=== PATIENT | female | born 1930 | race Caucasian/White ===

== ENCOUNTER → 2016-05-17 | Outpatient (CLI) | payer MEDICARE, BC ==
[~2016-05-17] MED LIST: ASPIRIN LO-DOSE81 MG PO; ATIVAN 0.5MG0.5 MG PO; FLECAINIDE ACET50 MG PO; LEVOTHROID (SY88 MCG PO; OXYGEN M-15 NOSE; PRESERVISION A1 EAC2 PO; PRESERVISION L1 EACH PO
== END | disposition disaster alternative care site (69) ==
LOC: GRAD 10:38
DX: R10.9 Unspecified abdominal pain (principal); D64.9 Anemia, unspecified; K57.30 Diverticulosis of large intestine without perforation or abscess without bleeding

== ENCOUNTER 2016-07-20 23:54 | Inpatient (IN) | payer OTHER, MEDICARE, BC ==
[~2016-07-20] VITALS: Ht 162.6 cm; Wt 44.6 kg
--- NOTE | ~2016-07-20 | HP ---
PATIENT'S NAME: [facility]JA [facility] AGE: 86 Y [address] ROOM: [place] [address] LOCATION: [facility] ADMIT DATE: 07/21/2016 History & Physical DISCHARGE DATE: 07/22/2016 FAMILY PHYSICIAN: Burton Gaffney MD ATTENDING PHYSICIAN: Burton Gaffney DATE OF SERVICE: CHIEF COMPLAINT: Shortness of breath. HISTORY OF PRESENT ILLNESS: The patient is an 86-year-old female, who is currently in Hospice with a history of congestive heart failure, who presented to the Emergency Department with acute shortness of breath. The patient was found to have a hemoglobin of 4.2. The patient does have a history of anemia along with congestive heart failure. The patient is currently in Hospice and being taken care of by her son. PAST MEDICAL HISTORY: Reviewed. PAST SURGICAL HISTORY: Reviewed. ALLERGIES: REVIEWED. MEDICATIONS: Reviewed. FAMILY HISTORY: Noncontributory. REVIEW OF SYSTEMS: Noted. OBJECTIVE: VITAL SIGNS: Temperature was 97.7, pulse was 93, respirations were 22, and blood pressure was 92/55. GENERAL: The patient is alert, arousable, and able to answer questions. HEENT: Head: Normocephalic and atraumatic. Eyes: Conjunctivae were clear. No scleral icterus. Mouth and Oropharynx: Mucosa was moist and patent. No lesions or exudates. NECK: Supple. No lymphadenopathy. PATIENT'S NAME: S[facility]JA [facility] AGE: 86 Y [address] ROOM: [place] [address] LOCATION: [facility] ADMIT DATE: 07/21/2016 History & Physical DISCHARGE DATE: 07/22/2016 FAMILY PHYSICIAN: Burton Gaffney MD ATTENDING PHYSICIAN: Burton Gaffney HEART: Regular rate and rhythm. LUNGS: Decreased breath sounds at bases. ABDOMEN: Bowel sounds are present and nontender. EXTREMITIES: No cyanosis. VASCULAR: Pulse was 2. LABORATORY DATA: CBC showed a hemoglobin of 4.2. Chemistry showed a potassium of 3.4. ASSESSMENT: 1. Congestive heart failure. 2. Anemia. 3. Hospice. 4. Anxiety. 5. Hypothyroidism. PLAN: At this time, we will transfuse 2 units of blood and re-check a hemoglobin afterwards. We will have a discussion with family about Hospice, and their needs at home in order to keep the patient comfortable. MD SAVANNAH GAMBOA/hollie /[id number] D: T: HISTORY & PHYSICAL
--- NOTE | ~2016-07-20 | ER ---
PATIENT'S NAME: FAN CASILLAS [facility] AGE: 86 Y [address] ROOM: [place] [address] LOCATION: [facility] ADMIT DATE: 07/21/2016 ER/Outpatient Report DISCHARGE DATE: FAMILY PHYSICIAN: Burton Gaffney MD ATTENDING PHYSICIAN: Burton Gaffney Time of Arrival: 2354 hours. Time of Evaluation: 2354 hours. CHIEF COMPLAINT: Fall. HISTORY OF PRESENT ILLNESS: The patient is an 86-year-old female, who presents to the emergency department today with chief complaint of fall. She reports that she fell while trying to get out of bed as she almost was able to get up, however, then fell again. She was unable to get up at that time as she felt too weak. She has been having increased weakness over the past few weeks. She denies any pain. No hip pain. Denies any head injury. No loss of consciousness. Denies any fevers or chills. No nausea or vomiting. No diarrhea or constipation. No urinary symptoms. No difficulties talking or swallowing. She is having difficulty with walking. PAST MEDICAL HISTORY: On hospice, atrial fibrillation, B12 deficiency, congestive heart failure, anemia, hypothyroid. PAST SURGICAL HISTORY: Bowel resection, back surgery. SOCIAL HISTORY: The patient quit smoking 40 years ago. Denies any illicit drug abuse. Does rarely use alcohol. ALLERGIES: TO IODINE AND SULFA. MEDICATIONS: Please see list. PRIMARY CARE DOCTOR: Dr. Gaffney. REVIEW OF SYSTEMS: All systems are reviewed by myself and are negative with the exception of [facility] 86 Y [address] ROOM: [place] [address] LOCATION: [facility] ADMIT DATE: 07/21/2016 ER/Outpatient Report DISCHARGE DATE: FAMILY PHYSICIAN: Burton Gaffney MD ATTENDING PHYSICIAN: Burton Gaffney those discussed in the HPI and past medical history. PHYSICAL EXAMINATION: VITAL SIGNS: Weight 49.7 kg, blood pressure 119/60, pulse 96, respiratory rate 20, temperature 98.9, oxygen saturation 84% on room air, 95% on 2 L nasal cannula. GENERAL: The patient is an 86-year-old female, who appears pale, appears stated age. HEENT: Normocephalic. Conjunctivae are pale. NECK: Supple. There is no nuchal rigidity. CARDIOVASCULAR: Regular rate and rhythm. LUNGS: Diminished diffusely. No wheezes, rales, or rhonchi. ABDOMEN: Soft, nontender, and nondistended. No rebound, rigidity, or guarding. MUSCULOSKELETAL: The patient moves all 4 extremities. Normal range of motion. There is no tenderness to palpation of the bony landmarks. The patient does have some weakness in bilateral lower extremities. Upper extremities 5/5. NEUROLOGICAL: GCS of 15. Alert. Facial sensation is normal. No facial droop. No motor dysfunction of the face. Shoulder shrug is normal. Equal field secretary strength bilaterally. No pronator drift. Normal ardnrj-ei-garm. Normal rapid hand movement. Downward going toes. No clonus. 2/4 reflexes. SKIN: Warm and dry. The patient does have stage I decubitus ulcer. LABORATORY DATA AND X-RAYS: Urinalysis: 500 leuk esterase, negative nitrite, 100 protein, 10 blood, 20-50 wbc's, many bacteria, 0-2 rbc's, 2-5 epithelials, 0-[address] scan of the brain is obtained. It is read by [facility]. It shows no acute process. CT scan of the C-spine is negative except it does show moderate to severe bilateral mastoiditis as well as moderate to severe emphysema. Lactate is 1.5. EKG is obtained, is interpreted by myself at 0050 hours. It shows atrial fibrillation with a rate of 96, normal axis, normal interval. No ST elevation or ST depression, nonspecific T-wave. ProBNP is 1646. CBC: White blood cell count is normal. Hemoglobin is 4.2, this is compared to 05/21, when it was 9.0; platelets are 120. CMP: Sodium 147, potassium 3.4, CO2 of 36. LFTs normal. Magnesium is normal. CK is 19. CK-MB and troponin are normal. Chest x-ray, no acute process. Procalcitonin 0.37. IMPRESSION: 1. Acute on chronic blood loss anemia. 2. Acute urinary tract infection, suspect bladder. 3. Immobility. 4. Hypernatremia. 5. 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 6. Moderate to severe emphysema. PATIENT'S NAME: FAN CASILLAS [facility] AGE: 86 Y [address] ROOM: [place] [address] LOCATION: [facility] ADMIT DATE: 07/21/2016 ER/Outpatient Report DISCHARGE DATE: FAMILY PHYSICIAN: Burton Gaffney MD ATTENDING PHYSICIAN: Burton Gaffney 7. Atrial fibrillation with slow ventricular rate. 8. Initial visit. EMERGENCY DEPARTMENT COURSE: The patient was brought back to the examination room. Seen and evaluated by myself. IV is established. Laboratory analysis and imaging are obtained as described above. The patient is typed and crossed for 4 units of packed red blood cells. I have discussed results with the patient and her son as well as [id number], who are at the bedside. I have discussed the risks and benefits of receiving blood. We did give the patient 1 g of Rocephin IV for the urinary tract infection. I have discussed the case with Dr. Gaffney, the patient's primary care doctor, he is on-call. He does agree to accept the patient for further evaluation, treatment, and management. DISPOSITION: The patient is admitted under the care of Dr. Gaffney in stable condition. DO SENDY OTOOLE/hollie /[id number] d: 07/21/16 0434 t: 07/22/16 0553, OUTPATIENT REPORT
--- NOTE | ~2016-07-20 | DS ---
PATIENT'S NAME: FAN CASILLAS [facility] AGE: 86 Y [address] ROOM: [address] [address] LOCATION: [facility] ADMIT DATE: 07/21/2016 Discharge Summary DISCHARGE DATE: 07/22/2016 FAMILY PHYSICIAN: Burton Gaffney MD ATTENDING PHYSICIAN: Burton Gfafney DISCHARGE DIAGNOSES: 1. Congestive heart failure. 2. Hypothyroidism. 3. Anemia. 4. Hospice. 5. Anxiety. CONSULTS DURING ADMISSION: Hospice and Care Management. PROCEDURES DURING ADMISSION: None. HOSPITAL COURSE: The patient is an 86-year-old female, who is on hospice who was brought through the emergency department for increasing shortness of breath and deterioration. The patient was found to have a hemoglobin of 4.2 and was transfused 2 units of blood and it went up to 7.2. At this time, we had a long discussion with the son who is the POA along with hospice about her cares and the patient desired to be discharged back home on hospice. DISCHARGE CONDITION: Stable. DISPOSITION: Home. DISCHARGE MEDICATIONS: Please see list. DISCHARGE INSTRUCTIONS: At this time, the patient will continue on hospice and the patient and family are to follow with hospice nurse. BURTON GAFFNEY MD RLG/modl /[id number] d: 07/27/16 0330 t: 08/16/16 2119, DISCHARGE SUMMARY
--- NOTE | ~2016-07-20 | CON ---
PATIENT'S NAME: FAN CASILLAS [facility] AGE: 86 Y [address] ROOM: [place] [address] LOCATION: [facility] ADMIT DATE: 07/21/2016 Consultation DISCHARGE DATE: FAMILY PHYSICIAN: Burton Gaffney MD ATTENDING PHYSICIAN: Burton Gaffney DATE OF CONSULTATION: 07/21/2016 LOCATION: [address] [place] [address]. This is a palliative care referral for transitioning back to hospice and goals of care. HISTORY OF PRESENT ILLNESS: This 86-year-old, frail female came in on 07/21/2016. She had fallen a couple of times at home. Was previously on hospice for history of congestive heart failure, combined systolic and diastolic, and anemia. She had continued to decline lived at home. Son and caregivers checked on her daily, but did not have 24-hour care. She had become increasing weaker, walked with walker, and not eating. Currently, denies any pain, nausea, or vomiting. Does complain of some shortness of breath. Not hungry, refusing to eat, taking very little in orally. She is alert and oriented, but drowsy. PAST MEDICAL HISTORY: Acquired hypothyroidism; anxiety; congestive heart failure, combined systolic and diastolic; emphysema; essential hypertension; paroxysmal atrial fibrillation; pernicious anemia; and right eye blindness. PAST SURGICAL HISTORY: Bowel resection, back surgery, hysterectomy, and cholecystectomy. SOCIAL HISTORY: Lives at home alone. Has a son and a daughter. Quit smoking about 40 years ago. No illicit drug use. Rare alcohol use. ALLERGIES: TO ERYTHROMYCIN, IODINE, OXYTETRACYCLINE, POLYMYXIN B OPHTHALMIC DROPS, PENICILLIN, SULFA, AND TERRAMYCIN. HOME MEDICATIONS: 1. Aspirin 81 mg. 2. Flecainide 50 mg take one every 12 hours. 3. Levothyroxine 88 mcg daily. 4. PreserVision with lutein 226 mg/200 units in 5 mg oral tablet daily. PATIENT'S NAME: FAN CASILLAS [facility] AGE: 86 Y [address] ROOM: [address] [address] LOCATION: [facility] ADMIT DATE: 07/21/2016 Consultation DISCHARGE DATE: FAMILY PHYSICIAN: Burton Gaffney MD ATTENDING PHYSICIAN: Burton Gaffney REVIEW OF SYSTEMS: A complete review of systems was done and is negative except as mentioned in the HPI and listed below. GI: Unknown last bowel movement. Taking in very little orally per her caregiver and hospice nurse. MUSCULOSKELETAL: Overall declining, getting weaker and weaker. PHYSICAL EXAMINATION: GENERAL: This is a frail, cachectic 86-year-old female. Alert but drowsy. Does arouse easily. Seems oriented to date, time, and place. Recognizes her son. VITAL SIGNS: Temperature 97.7, pulse 93 and regular, respirations 22, blood pressure 92/52, and O2 saturations 99%. SKIN: Warm and dry. Color pale. HEENT: Head, normocephalic and atraumatic. Sclerae are nonicteric. Conjunctivae are pale pink. Mouth is pink and moist without exudate. LYMPH: No cervical adenopathy or thyromegaly. RESPIRATORY: Clear to auscultation. Breath sounds even and regular, slightly labored, about 24 a minute. CARDIAC: S1, S2 without murmurs. No bruits or JVD. No lower extremity edema. ABDOMEN: Soft and nontender. Positive bowel tones. No hepatosplenomegaly. NEUROLOGICAL: Grossly intact. Follows commands. No focal or sensory deficits noted. MUSCULOSKELETAL: Decreased muscle mass in upper and lower extremities. Decreased strength in lower extremities. EXTREMITIES: No cyanosis or deformities. Palliative performance scale is 20%, totally bed-bound, unable do any activity, total care, minimal to sips intake, conscious level is full but drowsy. IMPRESSION: 1. Weakness. 2. Fatigue. 3. Dyspnea. PLAN: 1. Met with the patient and her son, Thien, who is her medical power of sales training manager; daycare manager, Mila Navarrete RN from hospice. Discussed overall plan of care. The patient had been on hospice and wanting comfort cares and not aggressive cares. The patient states very loudly she just wants to go home as soon as possible. She wants to be with her dog and her cat. Son is in agreement to just keep the patient PATIENT'S NAME: FAN CASILLAS [facility] AGE: 86 Y [address] ROOM: [place] [address] LOCATION: [facility] ADMIT DATE: 07/21/2016 Consultation DISCHARGE DATE: FAMILY PHYSICIAN: Burton Gaffney MD ATTENDING PHYSICIAN: Burton Gaffney comfortable and send back home on hospice. 2. Code status and advanced directive. The patient is currently a do not resuscitate/do not intubate. No copy of advanced directive is on chart. He was supposed to do a POLST form with home health. I will check on to see if the POLST form was completed. Discussed fears and concerns. Concerns were not having enough equipment as the patient is overalldeclining and not having 24-hour caregiving service. Hospice team agreed to bring in a wheelchair, a commode, and a lift to assist in taking care of the patient at home. Son states he is going to try to go, get off work, and be able to be at home and he has 1 caregiver who helps till his sister comes next week and then she will be able to help take care of the patient. OVERALL PLAN: The patient is in agreement to go home with ambulance tomorrow. Cherry from Care Management will set up transfer leaving approximately 10 a.m. per ambulance. She will let Dr. Gaffney know of transfer back home tomorrow morning. Thank you for allowing me to assist this patient and family. Total time was about 50 minutes with 40 minutes for counseling and coordination of care. ZACKERY ALVAREZ NP FOR MD SEDRICK SCHRADER/hollie /[id number] d: 07/21/16 2320 t: 07/23/16 1439, CONSULTATION REPORT
[2016-07-21 00:19] LABS: BILIRUBIN URINE NEGATIVE (NEGATIVE); BLOOD URINE 10 /UL (NEGATIVE); COLOR URINE YELLOW (YELLOW); GLUCOSE URINE NEGATIVE (NEGATIVE); KETONE URINE NEGATIVE (NEGATIVE); LEUKOCYTES URINE 500 /UL (NEGATIVE); NITRITE URINE NEGATIVE (NEGATIVE); PROTEIN URINE 100 mg/dL (NEGATIVE); SPEC GRAVITY URINE 1.015 (1.003-1.035); TURBIDITY URINE 2+ (CLEAR); UROBILINOGEN URINE 1 mg/dL (NORMAL)
[2016-07-21 00:34] LABS: BACTERIA URINE MANY (NEGATIVE); RBC URINE 0-2 #/HPF (NEGATIVE); WBC URINE 20-50 #/HPF (NEGATIVE)
[2016-07-21 00:35] LABS: HYALINE CAST URINE 0-2 #/LPF (NEGATIVE)
[2016-07-21 00:42] LABS: MCV 90.1 fl (83.0-98.0); PLATELET COUNT 120 K/uL (150-450); RBC 1.62 M/uL (3.00-5.00); RDW-CV 22.5 % (11.9-14.6); WBC 5.6 K/uL (4.0-11.0)
[2016-07-21 00:43] LABS: HEMATOCRIT 14.6 % (30.0-46.0); HEMOGLOBIN 4.2 g/dL (10.0-15.0); MCH 25.9 pg (27.0-34.0); MCHC 28.8 gm/dL (32.0-36.5)
[2016-07-21 00:59] LABS: INR - (THERAPEUTIC) 1.08 (0.92-1.07); PROTIME 11.4 SECONDS (9.8-11.4); PTT 28 SECONDS (25-32)
[2016-07-21 01:00] LABS: ALBUMIN 2.3 gm/dL (3.5-5.0); ALK PHOS 82 IU/L (33-138); ALT 10 IU/L (12-78); AST 13 IU/L (10-40); BLOOD UREA NITROGEN 12 mg/dL (6-24); CALCIUM 7.6 mg/dL (8.5-10.5); CHLORIDE 103 mMol/L (96-110); CPK 19 IU/L (21-215); CREATININE 0.7 mg/dL (0.5-1.1); ESTIMATED GFR (MDRD EQUATION) > 60; MAGNESIUM 2.2 mg/dL (1.8-2.6); POTASSIUM 3.4 mMol/L (3.7-5.1); TOTAL BILIRUBIN 0.6 mg/dL (0.0-1.5); TOTAL PROTEIN 5.1 g/dL (6.0-8.4)
[2016-07-21 01:02] LABS: ANION GAP 11.4 (10.0-19.0); CO2 36 mMol/L (22-32); SODIUM 147 mMol/L (135-145)
[2016-07-21 01:27] LABS: ABSOLUTE NEUTROPHIL CT (ANC) 3.9 K/uL (1.8-7.8); BANDED NEUTROPHIL # 0.7 K/uL (0.0-0.1); BANDED NEUTROPHILS % 13 %; LYMPHOCYTE % 17 %; MONOCYTE # 0.1 K/uL (0.0-1.0); SEGMENTED NEUTROPHIL # 3.2 K/uL (1.8-7.8); SEGMENTED NEUTROPHIL % 57 %
[2016-07-21] MEDS ORDERED: LEVOTHROID (SY88 MCG PO (02:26)
[2016-07-21] MEDS ORDERED: FLECAINIDE ACET50 MG PO (02:26)
[2016-07-21] MEDS ORDERED: ATIVAN 0.5MG0.5 MG PO (02:27)
[2016-07-21] MEDS ORDERED: PRESERVISION A1 EAC2 PO (02:28)
[2016-07-21] MEDS ORDERED: ASPIRIN LO-DOSE81 MG PO (02:28)
--- NOTE | 2016-07-21 05:59 | NUR ---
Significant Event:MULTI FALLS AT HOME. ON HOME HOSPICE. 2L NC, VSS WITH BLOOD INFUSION.2 UNITS PRBC. 2-3L NC, SATS >90%. COMFORT CARES. HOSPICE NURSE TO SEE TODAY. OVIEDO PLACED THIS MORNING FOR COMFORT. STAGE 2 PRESSURE ULCER TO COCYX Follow up:KEEP COMFORTABLE
--- NOTE | 2016-07-21 09:45 | NUR ---
Visited with Elizabeth from Palliative. Patient is here on a hospice general inpatient admission. 1030 Met with Elizabeth, patient, son Thien and Munira from [facility]. Plan for return to home tomorrow in [place] via ambulance. [facility] will get a wheelchair, lift and commode to the home. Patients daughter is coming next week to stay for awhile. Son, Thien will take a leave from work starting tomorrow until his sister gets here. Munira will check her office to see who should line up the transport, me or them. 1315 Missed a call from Elizabeth, I can line up the ambulance. Called EMS and spoke to Samra. Lined up for 1000 in the morning. 1325 Called Elizabeth, she will contact Hospice. Called and informed Dr Gaffney #[phone]. 1335 Notified Roberta, charge nurse. Updated patient and wrote on her marker board. Family was aware it would be tomorrow morning.
--- NOTE | 2016-07-21 10:58 | NUR ---
Significant Event: SLEEPY. 2ND UNIT OF PRBC FINISHED. VSS. O2 @ 2L NC. SON AT BEDSIDE. PIV X2 SL'D. TRANFERRED TO 3N @ 6567. Follow up:
--- NOTE | 2016-07-21 13:54 | NUR ---
PT SCREENED D/T MST. PT IS HOSPICE/COMFORT CARES. NO NUTRITION RELATED DIAGNOSIS IDENTIFIED AT THIS TIME. WILL ASSIST NEEDED.
--- NOTE | 2016-07-21 16:41 | NUR ---
Significant Event: Patient transferred from PCU at 0740. Alert and oriented. Forgetful at times. Edema to lower legs. Open area to coccyx. Avelar patent. O2 at 2L per nasal cannula. Turn Q2 hours. Hgb 7.2 Scab scratches to her lower legs. Scab to right ear from oxygen tubing. Comfort cares. Follow up:
--- NOTE | 2016-07-21 18:40 | NUR ---
I reviewed SN Mariela charting and approve. BEBETO Dougherty
--- NOTE | 2016-07-22 03:55 | NUR ---
Significant Event: A/O BUT FORGETFUL. IV SALINE LOCKS INTACT X 2. BEEN REPOSITIONED Q 2 HOUR WITH 1-2 ASSIST. OPEN AREA TO COCCYX, REDDENED, MOISTURE BARRIER APPLIED. 02 ON 2L NASAL CANNULA AT HOME. SCAB SCRATCHES TO LOWER LEGS. ON COMFORT CARES. OVIEDO CATHETER EMPTIED 300ML URINE. PATIENT FEEDS SELF AND DRINKS FLUIDS OFFERED. COMFORT CARES. DNR. TRANSFER PER AMBULANCE HOME AROUND 1000AM THIS AM. ALARMS ON AT ALL TIMES. EDEMA LOWER LEGS. Follow up:
--- NOTE | 2016-07-22 08:20 | NUR ---
Heather from EMS called. Their crews are busy and wondering if 1300 would work. I knew patient was very eager to get home, will check to see if she was ready to go and maybe someone else could transport. Called Roberta, charge nurse, paper signed and she is pretty much ready to go. Called Heather back. Asked if like Jessie could do it and shoot for 1000 still. 0840 Heather called, [facility] will do it and they will up shortly. Called Kelli Granados and patients [facility]ien. [facility] Equipment will be delivered to the house this afternoon. 0900 Spoke with [facility] crew. Need to wait for the son to get here, he is the POA and will follow to [place]. Also this is to billed to [facility]. 0920 Elizabeth with Pall[facility], faxed orders to [facility].
== END 2016-07-22 09:30 | disposition hospice, home (50) | DRG 812 ==
LOC: GACC 23:54 → G3N 07-21 01:27 → GPCU 07-21 01:27 → G3N 07-21 01:27
PROVIDERS: Emergency Medicine; ADMIT Family Medicine
PROC: 30233N1 Transfusion of Nonautologous Red Blood Cells into Peripheral Vein, Percutaneous Approach (ICD-10-PCS; principal; 2016-07-21)
DX: D62 Acute posthemorrhagic anemia (principal); E87.0 Hyperosmolality and hypernatremia; N39.0 Urinary tract infection, site not specified; I50.42 Chronic combined systolic (congestive) and diastolic (congestive) heart failure; Z51.5 Encounter for palliative care; E03.9 Hypothyroidism, unspecified; F41.9 Anxiety disorder, unspecified; Z79.01 Long term (current) use of anticoagulants; E53.8 Deficiency of other specified B group vitamins; Z66 Do not resuscitate; Z87.891 Personal history of nicotine dependence; H70.93 Unspecified mastoiditis, bilateral; J43.9 Emphysema, unspecified; I48.0 Paroxysmal atrial fibrillation; I10 Essential (primary) hypertension; Z91.81 History of falling
CPT/HCPCS: J0696; J1940; J7050; P9016

== ENCOUNTER 2016-07-25 11:16 | Inpatient (IN) | payer OTHER, MEDICARE, BC ==
[~2016-07-25] VITALS: Ht 165.1 cm; Wt 49.5 kg
--- NOTE | ~2016-07-25 | HP ---
PATIENT'S NAME: FAN CASILLAS [facility] AGE: 86 Y [address] ROOM: [id number] [place] [address] [place]ATION: [facility] [place] DATE: 07/25/2016 History & Physical DISCHARGE DATE: FAMILY PHYSICIAN: Burton Gaffney MD ATTENDING PHYSICIAN: Burton Gaffney DATE OF SERVICE: CHIEF COMPLAINT: Not feeling well with increasing shortness of breath. HISTORY OF PRESENT ILLNESS: The patient is an 86-year-old, who is currently is a hospice patient. She just was recently placed on hospice. Unfortunately, I do not think the family really understands everything about it yet despite of being explained to them extensively by both [facility] and [facility]. She started to feel worse today, more short of breath. They did not even call the hospice nurse and brought her in for evaluation. The family then insisted she be treated and admitted to the hospital. She was just in here and was given a blood transfusion for hemoglobin of 4.2. She has had recent colonoscopy and EGD on 04/14/2016 that overall looked good. She has a known history of significant congestive heart failure, paroxysmal atrial fib, pernicious anemia, along with hypothyroidism and anxiety. Her son by report is the durable power of insurance counsel, and he is not available for me to talk to, but did talk to Dr. Rebecca Bell in the ER and stated that they insisted that she be treated. They did an evaluation. Her hemoglobin was 8.2 today which is reasonable. She had been down to 4.2, received several units of blood. It was during her last hospitalization which was just a few days ago that they elected to go with palliative care. With further discussions with the patient and family, it was all agreed upon that she should go home as per the patient's wishes and just be treated at home with hospice. Unfortunately, the family elected to use her POLST wishes. The patient is a poor historian and is extremely hard of hearing. PAST MEDICAL HISTORY: ALLERGIES: INCLUDE ERYTHROMYCIN, IODINE CONTAINING MEDICATIONS AND INJECTIONS, OXYTETRACYCLINE, POLYMYXIN B OPHTHALMIC OINTMENT, PENICILLINS, SULFA, AND TERRAMYCIN. CURRENT MEDICATIONS: Include, 1. Enteric-coated aspirin 81 mg daily. 2. Flecainide 50 mg twice daily. PATIENT'S NAME: CASILLAS, [facility] AGE: 86 Y [address] ROOM: [place] [address] LOCATION: [facility] [place]MIT DATE: 07/25/2016 History & Physical DISCHARGE DATE: FAMILY PHYSICIAN: Burton Gaffney MD ATTENDING PHYSICIAN: Burton Gaffney 3. Levothyroxine 88 mcg daily, but we will increase that up to 100 as her last few TSHs have been slightly elevated. 4. Ativan 0.5 mg every 4 hours. 5. Oxygen per nasal cannula. 6. Multivitamin. FAMILY HISTORY: Noncontributory. 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 PAST SURGICAL HISTORY: She has had a previous history of a back surgery, colon resection, colonoscopy in 2017, EGD 2016, both 04/14/2016. EGD was normal. They did remove some polyps from her colonoscopy, but nothing acute there. HABITS: The patient does not smoke any more. Does not drink. SOCIAL HISTORY: Lives at home. Hospice is involved, but unfortunately they were not notified today. REVIEW OF SYSTEMS: Unobtainable, but per family, her main complaint was that of weakness, fatigue, and shortness of breath. PHYSICAL EXAMINATION: GENERAL: Shows a thin, frail, elderly 86-year-old female, who at this time is resting comfortably in bed. O2 is on. HEENT: Normal. LUNGS: Show diminished breath sounds throughout. HEART: Regular rate and rhythm. ABDOMEN: Benign. EXTREMITIES: Negative. SKIN: She has diffuse bruising throughout her body. LABORATORY DATA: The patient's lactate was 0.8. CPK 20. Troponin-I less than 0.040 and proBNP was elevated at 1973. Her white count is 5.7, hemoglobin is 8.2, hematocrit 27.2, platelet count is 151. Her glucose is 108, BUN 9, creatinine 0.6, PATIENT'S NAME: FAN CASILLAS [facility] AGE: 86 Y [address] ROOM: [place] [address] LOCATION: [facility] ADMIT DATE: 07/25/2016 History & Physical DISCHARGE DATE: FAMILY PHYSICIAN: Burton Gaffney MD ATTENDING PHYSICIAN: Burton Gaffney sodium 148, potassium 3.4, chloride 101, CO2 of 41, calcium 8.0. Total protein 5.3, albumin 2.4, AST 22, ALT 16, alkaline phosphatase 82, total bilirubin 0.5. Magnesium 2.1 with EGFR greater than 60. Protime 11.2 with INR of 1.07 and PTT of 27. Her urinalysis showed 30 of protein, 0-2 white cells, 5-10 red cells, few bacteria, 0-2 epis. CK-MB was 0.7, procalcitonin 0.12. ASSESSMENT: 1. Hospice/palliative care patient. 2. History of acute on chronic congestive heart failure. 3. History of anemia of uncertain etiology. 4. Mild hypokalemia. 5. History of pernicious anemia. 6. History of EGD and colonoscopy on 04/14/2016 that did not explain her gastrointestinal blood loss. 7. Acquired hypothyroidism. 8. Emphysema. 9. Paroxysmal atrial fibrillation. PLAN: Family really wanted the patient to be admitted, so we will admit her to observation. We will diurese her. We will place her on fluid and sodium restriction. Dr. Burton Gaffney will takeover, will have Palliative Care involved and see if family truly wishes to proceed with hospice. If so, I think we need to do a better job educating them as to what they need to do. MD ENEIDA LIU/hollie /[id number] D: T: HISTORY & PHYSICAL
--- NOTE | ~2016-07-25 | ER ---
PATIENT'S NAME: FAN CASILLAS [facility] AGE: 86 Y [address] ROOM: [place] [address] LOCATION: [facility] [place] ADMIT DATE: 07/25/2016 ER/Outpatient Report DISCHARGE DATE: FAMILY PHYSICIAN: Burton Gaffney MD ATTENDING PHYSICIAN: Burton Gaffney Time of Arrival: 1116 hours. Time of Evaluation: 1124 hours. IDENTIFICATION: An 86-year-old female. CHIEF COMPLAINT: Trouble breathing. HISTORY OF PRESENT ILLNESS: The patient is an 86-year-old female who was just referred to hospice for congestive heart failure. She also has a history of anemia. She has been in the hospital now 3 times this week, did receive a blood transfusion last week. She is becoming increasingly weak and is complaining of shortness of breath. She was given lorazepam last night and again this morning, but still continued to complain of shortness of breath. She has bilateral lower extremity edema. She denies chest pain. She is very hard of hearing. ALLERGIES: TO CODEINE AND SULFA. CURRENT MEDICATIONS: 1. Levothyroxine 88 mcg daily. 2. Flecainide 50 mg b.i.d. 3. Lorazepam 0.5 mg q.4 hours p.r.n. PAST MEDICAL HISTORY: 1. Combined systolic and diastolic congestive heart failure. 2. Anemia. 3. Hypothyroidism. 4. Anxiety. 5. Emphysema. 6. Hypertension. 7. Paroxysmal atrial fibrillation. 8. Pernicious anemia. 9. Right eye blindness. PAST SURGICAL HISTORY: 1. Bowel resection. PATIENT'S NAME: FAN CASILLAS [facility] AGE: 86 Y [address] ROOM: [place] [address] LOCATION: [facility] [place] ADMIT DATE: 07/25/2016 ER/Outpatient Report DISCHARGE DATE: FAMILY PHYSICIAN: Burton Gaffney MD ATTENDING PHYSICIAN: Burton Gaffney 2. Back surgery. 3. Hysterectomy. 4. Cholecystectomy. SOCIAL HISTORY: The patient lives at home. Her son is staying with her most of the time. Tobacco use, she quit 40 years ago. Alcohol use, rare. Drug use, denies. FAMILY HISTORY: No pertinent family history identified. REVIEW OF SYSTEMS: All systems reviewed and negative other than what is noted in the HPI. PHYSICAL EXAMINATION: VITAL SIGNS: Weight 49.5 kg. Pulse 109, respirations 26, temp 98.7, sats 95%, blood pressure 129/63. The patient's sats did drop down to 82% on room air, so was placed on O2 and titrated to maintain her saturations greater than 90%. GENERAL: Pleasant 86-year-old female, very hard of hearing, in no acute distress. HEENT: Head: Normocephalic, atraumatic. Ears: TMs translucent, both ears. Eyes: Pupils equal and reactive to light and accommodation. Extraocular movements intact. Nose: Mucosa pink. No lesions. Mouth: No lesions. Pharynx benign. NECK: Supple. No lymphadenopathy. LUNGS: Clear to auscultation. No rhonchi, wheezes, or rales. HEART: Regular rate and rhythm. ABDOMEN: Soft, nondistended, nontender. SKIN: Wilsey, warm, and dry. No lesions or rashes noted. NEURO: No focal deficit. She does have 2+ lower extremity edema. No calf tenderness. LABORATORY DATA AND X-RAYS: Chest x-ray, no acute process. Pending Radiology over-read. Hemoglobin 8.2, hemoglobin was 7.2 on July 21, 2016; hematocrit 27.2; platelets 151; white count 5.7; 48% segs; 15% bands. Sodium 148, potassium 3.4, chloride 101, CO2 of 41, BUN 9, creatinine 0.6, blood sugar 108. Liver enzymes are normal. Magnesium 2.1. CPK 20. CK-MB 0.7. Troponin-I less than 0.040. Lactate 0.8. Procalcitonin 0.12. ProBNP elevated at 1973. EKG, sinus tachycardia at 104 beats per minute. No acute ST elevation or depression. Nonspecific ST-T wave changes are present. IMPRESSION: Acute on chronic systolic and diastolic congestive heart failure with PATIENT'S NAME: FAN CASILLAS [facility] AGE: 86 Y [address] ROOM: [id number] [place], [place] [address] LOCATION: [facility] [place] ADMIT DATE: 07/25/2016 ER/Outpatient Report DISCHARGE DATE: FAMILY PHYSICIAN: Burton Gaffney MD ATTENDING PHYSICIAN: Burton Gaffney increasing shortness of breath and oxygen requirements. PLAN: Discussed at length with the patient and her family. She is on hospice, does not want aggressive care and is a DNR, but her son is having a difficult time at this time managing her at home. She will be admitted observation for diuresis, O2, and a little bit more education on hospice. The patient will be admitted by Dr. Murphy for her primary care physician, Dr. Hernandez. MD SHIRLEY POLANCO/hollie /[id number] d: [id number]/25/[id number] t: 07/28/16 0640, OUTPATIENT REPORT
[~2016-07-25 11:16] MED LIST changes: -OXYGEN M-15 NOSE; -PRESERVISION L1 EACH PO
[2016-07-25 11:58] LABS: HEMOGLOBIN 8.2 g/dL (10.0-15.0); MCV 89.8 fl (83.0-98.0); MPV 10.3 fl (9.4-12.4); WBC 5.7 K/uL (4.0-11.0)
[2016-07-25 11:59] LABS: HEMATOCRIT 27.2 % (30.0-46.0); MCH 27.1 pg (27.0-34.0); MCHC 30.1 gm/dL (32.0-36.5); PLATELET COUNT 151 K/uL (150-450); RBC 3.03 M/uL (3.00-5.00); RDW-CV 18.3 % (11.9-14.6)
[2016-07-25 12:05] LABS: INR - (THERAPEUTIC) 1.07 (0.92-1.07); PROTIME 11.2 SECONDS (9.8-11.4); PTT 27 SECONDS (25-32)
[2016-07-25 12:24] LABS: ALBUMIN 2.4 gm/dL (3.5-5.0); ALK PHOS 82 IU/L (33-138); ALT 16 IU/L (12-78); AST 22 IU/L (10-40); BLOOD UREA NITROGEN 9 mg/dL (6-24); CHLORIDE 101 mMol/L (96-110); CPK 20 IU/L (21-215); CREATININE 0.6 mg/dL (0.5-1.1); ESTIMATED GFR (MDRD EQUATION) > 60; MAGNESIUM 2.1 mg/dL (1.8-2.6); POTASSIUM 3.4 mMol/L (3.7-5.1); TOTAL BILIRUBIN 0.5 mg/dL (0.0-1.5); TOTAL PROTEIN 5.3 g/dL (6.0-8.4)
[2016-07-25 12:25] LABS: ANION GAP 9.4 (10.0-19.0); CO2 41 mMol/L (22-32); SODIUM 148 mMol/L (135-145)
[2016-07-25 12:34] LABS: ABSOLUTE NEUTROPHIL CT (ANC) 3.6 K/uL (1.8-7.8); BANDED NEUTROPHIL # 0.9 K/uL (0.0-0.1); BANDED NEUTROPHILS % 15 %; LYMPHOCYTE # 0.9 K/uL (0.8-4.0); LYMPHOCYTE % 16 %; SEGMENTED NEUTROPHIL # 2.7 K/uL (1.8-7.8); SEGMENTED NEUTROPHIL % 48 %
[2016-07-25] MEDS ORDERED: PRESERVISION L1 EACH PO (14:24)
[2016-07-25] MEDS ORDERED: ASPIRIN LO-DOSE81 MG PO (14:24)
[2016-07-25] MEDS ORDERED: OXYGEN M-15 NOSE (15:57)
[2016-07-25 16:59] LABS: BILIRUBIN URINE NEGATIVE (NEGATIVE); BLOOD URINE 25 /UL (NEGATIVE); COLOR URINE YELLOW (YELLOW); GLUCOSE URINE NEGATIVE (NEGATIVE); KETONE URINE NEGATIVE (NEGATIVE); LEUKOCYTES URINE 25 /UL (NEGATIVE); NITRITE URINE NEGATIVE (NEGATIVE); PROTEIN URINE 30 mg/dL (NEGATIVE); UROBILINOGEN URINE NORMAL (NORMAL)
[2016-07-25 17:00] LABS: TURBIDITY URINE 1+ (CLEAR)
[2016-07-25 17:13] LABS: BACTERIA URINE FEW (NEGATIVE); CRYSTALS URINE CALCIUM OXALATE (NEGATIVE); EPITHELIAL URINE 0-2 #/HPF (NEGATIVE); WBC URINE 0-2 #/HPF (NEGATIVE)
--- NOTE | 2016-07-25 17:56 | NUR ---
Significant Event: Patient admitted from the ER. Patient dismissed on 07/22 to home, son staying with her with Hospice care. He reports they got a hospital bed and she was not happy about that, tried to get up by herself and fell at home on Tuesday, he reports it was all he could do to get her up as she is unable to assist. Today she was complaining of shortness of breath and anxiety, she had had a dose of ativan, son was talking to the hospice nurse and was instructed to give her some morphine but she wanted him to call the ambulance, so she was brought in by unit. She has been having loose stools but son reports this is not new. On admission alejandra catheter is intact (inserted 07/20/16) draining yellow urine. She has an open area on her coccyx that son reported, she prefers to lay on her back and even when positioned on her side works herself to her back. Open areas and bruising noted on front of legs, son reports her dog jumps up on herlegs. Open/scabbed areas on lower arms and ecchymosis noted over all extremities. She is very hard of hearing, but does not have hearing aids. Follow up:Admitted for possible placement. Son is her Power of Collections Director and he has been in contact with his siblings.
--- NOTE | 2016-07-26 04:14 | NUR ---
Significant Event: Sleeping for long periods tonight. Afebrile, all other VSS. Alert and oriented x3. Continues on 3L O2 per [place] (home setting). Eating and drinking without nausea or vomiting. Avelar catheter to DD, 1500ml of clear, light yellow urine out this shift. PIV to L) AC patent and saline locked. Repositioned q 2 hours throughout the night. Refused calf pneumatics. Patient is very [place]. Swallows pills without difficulty. Pleasant with cares. Follow up:
[2016-07-26 09:14] LABS: ANION GAP 6.5 (10.0-19.0); BLOOD UREA NITROGEN 11 mg/dL (6-24); CALCIUM 7.9 mg/dL (8.5-10.5); CHLORIDE 97 mMol/L (96-110); CREATININE 0.6 mg/dL (0.5-1.1); ESTIMATED GFR (MDRD EQUATION) > 60; POTASSIUM 3.5 mMol/L (3.7-5.1); SODIUM 144 mMol/L (135-145)
[2016-07-26 09:26] LABS: CO2 44 mMol/L (22-32)
--- NOTE | 2016-07-26 11:05 | NUR ---
CONSULT FOR PRESSURE ULCER NOTED. PT NOT AT RISK SHE IS ON HOSPICE; HOWEVER, WILL ADD ENSURE BID TO MAXIMIZE INTAKE WHILE HOSPITALIZED.
--- NOTE | 2016-07-26 12:11 | NUR ---
RECEIVED REFERRAL TO [facility] FOR SNF. I SPOKE TO ABEL WITH PALLATIVE CARE AND SHE REPORTS THAT SHE HAS MEET WITH PATIENT'S SON AND HE DOES NOT WANT TO PLACE HIS MOTHER IN A SNF. HE IS GOING TO MEET WITH [facility] AND POSSIBLE [facility]ANGE FOR PRIVATE CARE GIVERS. HE WAS GOING TO GO HOME AND REST AND THAN MEET WITH THEM LATER TODAY. WILL CONT TO FOLLOW NEEDED.
--- NOTE | 2016-07-26 15:43 | NUR ---
Significant Event:has drank very little today, 100ml in po, 250 out alejandra, with repositioning patient turns self onto back, will attempt to float heels and patient will kick out pillow, eating well, 2 small loose bm's, Follow up:home with additional care and hospice
--- NOTE | 2016-07-26 16:00 | NUR ---
SPOKE TO CHRISTINA WITH [facility], SHE SPOKE TO [facility] AND THE NURSE FROM [facility], THEY HAVE BEEN MEETING WITH FAN'S SON AND [facility]ANGED FOR [facility] TO SEE PATIENT AND OTHER FAMILY ARE COMING FROM OUT OF STATE.
--- NOTE | 2016-07-27 03:56 | NUR ---
Significant Event: Patient alert and oriented X4. Patinet refused repositioning all night and family ok with that. Did not want her to be uncomfortable. Sore to upper coccyx. Morphine given X1 per family request at around 191. Relief noted. Vitals stable and on 2 liters oxygen. IV to L) AC. Avelar in place, 300 out. Refused floatin heels also. Plan is to go home with hospice today? 2+ edmema noted. Drank some pepsi and ate some runza that family brought in. Rested well tonight. Family at bedside. Follow up: Monitor oxygen
--- NOTE | 2016-07-27 09:00 | NUR ---
RECEIVED CALL FROM CHRISTINA WITH [facility], SHE REPORTS THAT SHE HAS MEET WITH PATIENT'S SON NIXON AND THERE ARE OTHER FAMILY MEMBERS THAT WILL BE HELPING WITH FAN'S CARE IN THE HOME, THEY HAVE ALSO [facility]RANGED FOR [facility] TO COME AND ASSIT. THEY CAN BE THERE TODAY AND [facility] IS IN PLACE. THEY WOULD LIKE TO TAKE PATIENT HOME TODAY VIA [facility]. I SPOKE TO NANY WITH [facility] AND ARRANGED FOR THEM TO TRANSPORT PATIENT HOME AT 1000. UPDATED CHRISTINA AND SHE WILL INFORM NIXON. SPOKE TO DYANA CHARGE NURSE ON [facility] UPDATED HER THAT PATIENT WILL BE LEAVING AT 1000. SHE REPORTS THAT [facility] IS AWARE AND THAT THE TRANSFERE ORDERS HAVE BEEN COMPLETED.
--- NOTE | 2016-07-27 09:53 | NUR ---
D: ORDERS RECEIVED FOR THE PATIENT TO BE DISCHARGED HOME WITH HOSPICE TODAY. I: DISMISSAL INSTRUCTIONS WERE PREPARED AND REVIEWED WITH THE FAMILY AND THE PATIENT VIRTUALLY. THE FOLLOWING INFORMATION WAS DISCUSSED INCLUDING [employer] TEACHING SHEETS PROVIDED: DISCHARGE INSTRUCTIONS-CARING FOR YOUR INDWELLING URINARY CATHETER, EMPTYING AND CLEANING YOUR URINARY CATHETER BAG, USING OXYGEN SAFELY, AND USING OXYGEN AT HOME. THE PRIMARY NURSE CHIDI Alexander RN DEMONSTRATED OVIEDO CATHETER CARES AND EMPTYING IT AT THE BEDSIDE WITH THE PATIENT'S FAMILY. R: THE PATIENT'S SON VERBALIZED UNDERSTANDING OF THE DISMISSAL EDUCATION AT THE TIME OF TEACHING WITH NO FURTHER QUESTIONS. P: THE ABOVE INFORMATION WAS SHARED WITH THE PRIMARY NURSE AND CHARGE NURSE THAT THE DISMISSAL EDUCATION WAS COMPLETED. THE PATIENT IS READY FOR DISCHARGED WHEN THE AMBULANCE GETS HER FOR TRANSPORT.
== END 2016-07-27 10:20 | disposition hospice, home (50) | DRG 291 ==
LOC: GMED 11:16 → GMSU 13:15
PROVIDERS: Family Medicine; ADMIT Obstetrics & Gynecology Obstetrics
DX: I11.0 Hypertensive heart disease with heart failure (principal); L89.153 Pressure ulcer of sacral region, stage 3; D51.0 Vitamin B12 deficiency anemia due to intrinsic factor deficiency; I48.0 Paroxysmal atrial fibrillation; R09.02 Hypoxemia; E87.6 Hypokalemia; I50.43 Acute on chronic combined systolic (congestive) and diastolic (congestive) heart failure; H91.90 Unspecified hearing loss, unspecified ear; E03.9 Hypothyroidism, unspecified; F41.9 Anxiety disorder, unspecified; H54.41 Blindness, right eye, normal vision left eye; Z87.891 Personal history of nicotine dependence; Z66 Do not resuscitate; Z79.82 Long term (current) use of aspirin
CPT/HCPCS: J1940; J2270

== ENCOUNTER → 2016-07-27 | Outpatient (CLI) | payer OTHER, MEDICARE, BC ==
[~2016-07-27] MED LIST changes: +OXYGEN M-15 NOSE; +PRESERVISION L1 EACH PO
== END | disposition disaster alternative care site (69) ==
LOC: GAMB 10:24
DX: J96.01 Acute respiratory failure with hypoxia (principal); J44.9 Chronic obstructive pulmonary disease, unspecified; I50.9 Heart failure, unspecified; Z99.81 Dependence on supplemental oxygen
CPT/HCPCS: A0422; A0425; A0428